=== PATIENT | female | born 1985 | race Caucasian/White ===

== ENCOUNTER 2017-11-14 11:38 | Observation (INO) | payer BC, OTHER ==
[~2017-11-14 11:38] MED LIST: ORTHOTRYCYCLINE; OXYACE5T PO; PANT40 PO
[2017-11-14 12:50] LABS: BASOPHILS ABSOLUTE AUTO 0.05 K/mm3 (0.00-0.23); BASOPHILS PERCENT AUTO 1 % (0-2); EOSINOPHILS ABSOLUTE AUTO 0.03 K/mm3 (0.00-0.68); EOSINOPHILS PERCENT AUTO 0 % (0-6); Hematocrit 37.4 % (33.0-51.0); Hemoglobin 12.8 g/dL (11.5-16.0); IMMATURE GRAN ABSOLUTE AUTO 0.05 K/mm3 (0.00-0.10); IMMATURE GRAN PERCENT AUTO 1 % (0-1); LYMPHOCYTES ABSOLUTE AUTO 2.31 K/mm3 (0.84-5.20); LYMPHOCYTES PERCENT AUTO 31 % (21-46); MONOCYTES ABSOLUTE AUTO 0.85 K/mm3 (0.16-1.47); MONOCYTES PERCENT AUTO 11 % (4-13); Mean Corpuscular HGB 30.8 pg (26.0-34.0); Mean Corpuscular HGB Conc 34.2 g/dL (31.5-36.5); Mean Corpuscular Volume 90 fL (80-100); Mean Platelet Volume 11.4 fL (9.1-12.4); NEUTROPHILS ABSOLUTE AUTO 4.16 K/mm3 (1.96-9.15); NEUTROPHILS PERCENT AUTO 56 % (41-73); Platelet Count 235 K/mm3 (150-400); RDW Coefficient Variation 12.8 % (11.7-14.2); RDW Standard Deviation 42.1 fL (35.1-46.3); Red Blood Cell Count 4.16 M/mm3 (3.80-5.20); White Blood Cell Count 7.45 K/mm3 (4.00-11.30)
[2017-11-14 12:55] LABS: Alanine Aminotransfer (ALT/SGP 33 U/L (12-78); Albumin, Blood 2.5 g/dL (3.4-5.0); Albumin/Globulin Ratio 0.7 (0.8-1.8); Alk Phos 175 U/L (50-136); Anion Gap 9 mmol/L (6-16); Aspartate Aminotrans (AST/SGOT 29 U/L (12-37); Bilirubin, Total 0.3 mg/dL (0.1-1.0); Blood Urea Nitrogen 18 mg/dL (8-24); CO2, Blood 21 mmol/L (21-32); Calcium, Blood 9.1 mg/dL (8.5-10.1); Chloride, Blood 107 mmol/L (98-108); Globulin, Blood 3.8 g/dL (2.2-4.0); Glomerular Filtration Rate >60 (60-); Glucose, Blood 80 mg/dL (70-99); Potassium, Blood 4.7 mmol/L (3.5-5.5); Sodium, Blood 137 mmol/L (136-145); Total Protein, Blood 6.3 g/dL (6.4-8.2)
[2017-11-14] MEDS ORDERED: LABE100 (14:19)
[2017-11-14] MEDS ORDERED: LEVSOD137 PO (16:24)
[2017-11-15 05:10] LABS: BASOPHILS ABSOLUTE AUTO 0.05 K/mm3 (0.00-0.23); BASOPHILS PERCENT AUTO 1 % (0-2); EOSINOPHILS ABSOLUTE AUTO 0.02 K/mm3 (0.00-0.68); EOSINOPHILS PERCENT AUTO 0 % (0-6); Hematocrit 35.7 % (33.0-51.0); Hemoglobin 12.2 g/dL (11.5-16.0); IMMATURE GRAN ABSOLUTE AUTO 0.05 K/mm3 (0.00-0.10); IMMATURE GRAN PERCENT AUTO 1 % (0-1); LYMPHOCYTES PERCENT AUTO 39 % (21-46); MONOCYTES ABSOLUTE AUTO 0.66 K/mm3 (0.16-1.47); MONOCYTES PERCENT AUTO 9 % (4-13); Mean Corpuscular HGB 30.7 pg (26.0-34.0); Mean Corpuscular HGB Conc 34.2 g/dL (31.5-36.5); Mean Corpuscular Volume 90 fL (80-100); Mean Platelet Volume 11.2 fL (9.1-12.4); NEUTROPHILS ABSOLUTE AUTO 3.82 K/mm3 (1.96-9.15); NEUTROPHILS PERCENT AUTO 51 % (41-73); Platelet Count 190 K/mm3 (150-400); RDW Coefficient Variation 12.9 % (11.7-14.2); RDW Standard Deviation 41.8 fL (35.1-46.3); Red Blood Cell Count 3.98 M/mm3 (3.80-5.20)
[2017-11-15 05:31] LABS: Alanine Aminotransfer (ALT/SGP 29 U/L (12-78); Albumin, Blood 2.3 g/dL (3.4-5.0); Albumin/Globulin Ratio 0.6 (0.8-1.8); Alk Phos 165 U/L (50-136); Anion Gap 10 mmol/L (6-16); Aspartate Aminotrans (AST/SGOT 24 U/L (12-37); Bilirubin, Total 0.4 mg/dL (0.1-1.0); Blood Urea Nitrogen 15 mg/dL (8-24); Bun/Creatinine Ratio 13.6 (12.0-20.0); CO2, Blood 21 mmol/L (21-32); Calcium, Blood 8.3 mg/dL (8.5-10.1); Chloride, Blood 109 mmol/L (98-108); Globulin, Blood 3.6 g/dL (2.2-4.0); Glomerular Filtration Rate >60 (60-); Glucose, Blood 71 mg/dL (70-99); Potassium, Blood 4.6 mmol/L (3.5-5.5); Sodium, Blood 140 mmol/L (136-145); Total Protein, Blood 5.9 g/dL (6.4-8.2)
== END 2017-11-15 11:00 | disposition home or self-care (01) ==
LOC: OBS 11:38 → BC 11:39 → OBS 15:32 → BC 15:37 → OBS 15:37 → BC 11-15 11:00
PROVIDERS: Obstetrics & Gynecology
DX: O14.93 Unspecified pre-eclampsia, third trimester (principal); O99.283 Endocrine, nutritional and metabolic diseases complicating pregnancy, third trimester; Z3A.34 34 weeks gestation of pregnancy; E05.00 Thyrotoxicosis with diffuse goiter without thyrotoxic crisis or storm
CPT/HCPCS: 36415; 59025; 76815; 76819; 80053; 81003; 81050; 84156; 85025; 96360; 96361; 99213; J0290; J7120

== ENCOUNTER → 2017-11-22 | Outpatient (CLI) | payer BC, OTHER ==
[~2017-11-22] MED LIST changes: +LABE100; +LEVSOD137 PO
[2017-11-22 15:39] LABS: BASOPHILS ABSOLUTE AUTO 0.07 K/mm3 (0.00-0.23); BASOPHILS PERCENT AUTO 1 % (0-2); EOSINOPHILS ABSOLUTE AUTO 0.03 K/mm3 (0.00-0.68); EOSINOPHILS PERCENT AUTO 0 % (0-6); Hematocrit 38.6 % (33.0-51.0); Hemoglobin 12.9 g/dL (11.5-16.0); IMMATURE GRAN ABSOLUTE AUTO 0.03 K/mm3 (0.00-0.10); IMMATURE GRAN PERCENT AUTO 0 % (0-1); LYMPHOCYTES ABSOLUTE AUTO 2.15 K/mm3 (0.84-5.20); LYMPHOCYTES PERCENT AUTO 30 % (21-46); MONOCYTES ABSOLUTE AUTO 0.65 K/mm3 (0.16-1.47); MONOCYTES PERCENT AUTO 9 % (4-13); Mean Corpuscular HGB 30.4 pg (26.0-34.0); Mean Corpuscular HGB Conc 33.4 g/dL (31.5-36.5); Mean Corpuscular Volume 91 fL (80-100); Mean Platelet Volume 11.7 fL (9.1-12.4); NEUTROPHILS ABSOLUTE AUTO 4.27 K/mm3 (1.96-9.15); NEUTROPHILS PERCENT AUTO 59 % (41-73); Platelet Count 197 K/mm3 (150-400); RDW Coefficient Variation 13.1 % (11.7-14.2); RDW Standard Deviation 42.8 fL (35.1-46.3); Red Blood Cell Count 4.25 M/mm3 (3.80-5.20)
[2017-11-22 15:53] LABS: Alanine Aminotransfer (ALT/SGP 19 U/L (12-78); Albumin, Blood 2.5 g/dL (3.4-5.0); Albumin/Globulin Ratio 0.7 (0.8-1.8); Alk Phos 223 U/L (50-136); Anion Gap 8 mmol/L (6-16); Aspartate Aminotrans (AST/SGOT 24 U/L (12-37); Bilirubin, Total 0.5 mg/dL (0.1-1.0); Blood Urea Nitrogen 18 mg/dL (8-24); Bun/Creatinine Ratio 18.5 (12.0-20.0); CO2, Blood 23 mmol/L (21-32); Calcium, Blood 8.2 mg/dL (8.5-10.1); Chloride, Blood 107 mmol/L (98-108); Creatinine, Blood 0.97 mg/dL (0.40-1.00); Globulin, Blood 3.7 g/dL (2.2-4.0); Glomerular Filtration Rate >60 (60-); Glucose, Blood 72 mg/dL (70-99); Sodium, Blood 138 mmol/L (136-145); Total Protein, Blood 6.2 g/dL (6.4-8.2)
[2017-11-22 15:56] LABS: Creatinine, Urine Random 44.3 mg/dL (27.00-270.00); Protein, Urine Random 93.7 mg/dL (0.0-11.9); Protein/Creat Ratio, Ur Random 2.1
== END ==
LOC: LAB SHORT 12:00 → LAB 12:00
PROVIDERS: Obstetrics & Gynecology
DX: Z34.03 Encounter for supervision of normal first pregnancy, third trimester (principal); Z3A.35 35 weeks gestation of pregnancy
CPT/HCPCS: 36415; 80053; 82570; 84156; 85025

== ENCOUNTER 2017-11-27 20:08 | Inpatient (IN) | payer BC, OTHER ==
[~2017-11-27] VITALS: Ht 170.2 cm; Wt 64.1 kg
[2017-11-27] MEDS ORDERED: PRENATAL VITAM1 EAC2 PO (20:50)
[2017-11-27 21:03] LABS: BASOPHILS ABSOLUTE AUTO 0.05 K/mm3 (0.00-0.23); BASOPHILS PERCENT AUTO 1 % (0-2); EOSINOPHILS ABSOLUTE AUTO 0.04 K/mm3 (0.00-0.68); EOSINOPHILS PERCENT AUTO 1 % (0-6); Hematocrit 36.1 % (33.0-51.0); Hemoglobin 12.7 g/dL (11.5-16.0); IMMATURE GRAN ABSOLUTE AUTO 0.03 K/mm3 (0.00-0.10); IMMATURE GRAN PERCENT AUTO 0 % (0-1); LYMPHOCYTES ABSOLUTE AUTO 2.67 K/mm3 (0.84-5.20); LYMPHOCYTES PERCENT AUTO 33 % (21-46); MONOCYTES ABSOLUTE AUTO 0.59 K/mm3 (0.16-1.47); MONOCYTES PERCENT AUTO 7 % (4-13); Mean Corpuscular HGB Conc 35.2 g/dL (31.5-36.5); Mean Corpuscular Volume 91 fL (80-100); Mean Platelet Volume 11.4 fL (9.1-12.4); NEUTROPHILS ABSOLUTE AUTO 4.79 K/mm3 (1.96-9.15); NEUTROPHILS PERCENT AUTO 59 % (41-73); Platelet Count 195 K/mm3 (150-400); RDW Coefficient Variation 13.1 % (11.7-14.2); RDW Standard Deviation 43.7 fL (35.1-46.3); Red Blood Cell Count 3.97 M/mm3 (3.80-5.20); White Blood Cell Count 8.17 K/mm3 (4.00-11.30)
[2017-11-27 21:20] LABS: Alanine Aminotransfer (ALT/SGP 26 U/L (12-78); Albumin, Blood 2.4 g/dL (3.4-5.0); Albumin/Globulin Ratio 0.6 (0.8-1.8); Alk Phos 227 U/L (50-136); Anion Gap 12 mmol/L (6-16); Aspartate Aminotrans (AST/SGOT 28 U/L (12-37); Bilirubin, Total 0.2 mg/dL (0.1-1.0); Blood Urea Nitrogen 17 mg/dL (8-24); Bun/Creatinine Ratio 15.5 (12.0-20.0); CO2, Blood 20 mmol/L (21-32); Calcium, Blood 8.2 mg/dL (8.5-10.1); Chloride, Blood 107 mmol/L (98-108); Glomerular Filtration Rate >60 (60-); Glucose, Blood 102 mg/dL (70-99); Potassium, Blood 4.2 mmol/L (3.5-5.5); Sodium, Blood 139 mmol/L (136-145); Total Protein, Blood 6.4 g/dL (6.4-8.2)
[2017-11-29 05:28] LABS: BASOPHILS ABSOLUTE AUTO 0.04 K/mm3 (0.00-0.23); BASOPHILS PERCENT AUTO 0 % (0-2); EOSINOPHILS ABSOLUTE AUTO 0.04 K/mm3 (0.00-0.68); EOSINOPHILS PERCENT AUTO 0 % (0-6); Hematocrit 28.6 % (33.0-51.0); Hemoglobin 9.9 g/dL (11.5-16.0); IMMATURE GRAN PERCENT AUTO 1 % (0-1); LYMPHOCYTES ABSOLUTE AUTO 2.67 K/mm3 (0.84-5.20); LYMPHOCYTES PERCENT AUTO 22 % (21-46); MONOCYTES ABSOLUTE AUTO 0.75 K/mm3 (0.16-1.47); MONOCYTES PERCENT AUTO 6 % (4-13); Mean Corpuscular HGB 31.3 pg (26.0-34.0); Mean Corpuscular HGB Conc 34.6 g/dL (31.5-36.5); Mean Corpuscular Volume 91 fL (80-100); NEUTROPHILS ABSOLUTE AUTO 8.68 K/mm3 (1.96-9.15); NEUTROPHILS PERCENT AUTO 71 % (41-73); Platelet Count 143 K/mm3 (150-400); RDW Coefficient Variation 13.2 % (11.7-14.2); RDW Standard Deviation 43.8 fL (35.1-46.3); Red Blood Cell Count 3.16 M/mm3 (3.80-5.20); White Blood Cell Count 12.28 K/mm3 (4.00-11.30)
[2017-11-29 11:42] LABS: BASOPHILS ABSOLUTE AUTO 0.05 K/mm3 (0.00-0.23); BASOPHILS PERCENT AUTO 1 % (0-2); EOSINOPHILS ABSOLUTE AUTO 0.03 K/mm3 (0.00-0.68); EOSINOPHILS PERCENT AUTO 0 % (0-6); Hematocrit 29.7 % (33.0-51.0); Hemoglobin 10.1 g/dL (11.5-16.0); IMMATURE GRAN ABSOLUTE AUTO 0.05 K/mm3 (0.00-0.10); IMMATURE GRAN PERCENT AUTO 1 % (0-1); LYMPHOCYTES ABSOLUTE AUTO 1.95 K/mm3 (0.84-5.20); LYMPHOCYTES PERCENT AUTO 18 % (21-46); MONOCYTES ABSOLUTE AUTO 0.55 K/mm3 (0.16-1.47); MONOCYTES PERCENT AUTO 5 % (4-13); Mean Corpuscular Volume 91 fL (80-100); NEUTROPHILS ABSOLUTE AUTO 8.06 K/mm3 (1.96-9.15); NEUTROPHILS PERCENT AUTO 75 % (41-73); Platelet Count 151 K/mm3 (150-400); RDW Coefficient Variation 13.2 % (11.7-14.2); RDW Standard Deviation 43.9 fL (35.1-46.3); Red Blood Cell Count 3.26 M/mm3 (3.80-5.20); White Blood Cell Count 10.69 K/mm3 (4.00-11.30)
[2017-11-29 11:58] LABS: Alanine Aminotransfer (ALT/SGP 12 U/L (12-78); Albumin/Globulin Ratio 0.6 (0.8-1.8); Alk Phos 167 U/L (50-136); Anion Gap 9 mmol/L (6-16); Aspartate Aminotrans (AST/SGOT 34 U/L (12-37); Bilirubin, Total 0.3 mg/dL (0.1-1.0); Blood Urea Nitrogen 15 mg/dL (8-24); Bun/Creatinine Ratio 15.1 (12.0-20.0); CO2, Blood 23 mmol/L (21-32); Calcium, Blood 7.5 mg/dL (8.5-10.1); Chloride, Blood 111 mmol/L (98-108); Creatinine, Blood 0.99 mg/dL (0.40-1.00); Globulin, Blood 3.4 g/dL (2.2-4.0); Glomerular Filtration Rate >60 (60-); Glucose, Blood 83 mg/dL (70-99); Potassium, Blood 4.3 mmol/L (3.5-5.5); Sodium, Blood 143 mmol/L (136-145); Total Protein, Blood 5.4 g/dL (6.4-8.2)
[2017-11-30] MEDS ORDERED: IBUP800 PO (07:27)
[2017-11-30 10:57] LABS: BASOPHILS ABSOLUTE AUTO 0.04 K/mm3 (0.00-0.23); BASOPHILS PERCENT AUTO 0 % (0-2); EOSINOPHILS ABSOLUTE AUTO 0.05 K/mm3 (0.00-0.68); EOSINOPHILS PERCENT AUTO 1 % (0-6); Hematocrit 33.4 % (33.0-51.0); Hemoglobin 11.5 g/dL (11.5-16.0); IMMATURE GRAN ABSOLUTE AUTO 0.06 K/mm3 (0.00-0.10); IMMATURE GRAN PERCENT AUTO 1 % (0-1); LYMPHOCYTES PERCENT AUTO 17 % (21-46); MONOCYTES ABSOLUTE AUTO 0.56 K/mm3 (0.16-1.47); MONOCYTES PERCENT AUTO 6 % (4-13); Mean Corpuscular HGB 31.9 pg (26.0-34.0); Mean Corpuscular HGB Conc 34.4 g/dL (31.5-36.5); Mean Corpuscular Volume 93 fL (80-100); Mean Platelet Volume 10.4 fL (9.1-12.4); NEUTROPHILS ABSOLUTE AUTO 7.44 K/mm3 (1.96-9.15); NEUTROPHILS PERCENT AUTO 76 % (41-73); Platelet Count 202 K/mm3 (150-400); RDW Coefficient Variation 13.4 % (11.7-14.2); RDW Standard Deviation 45.6 fL (35.1-46.3); Red Blood Cell Count 3.61 M/mm3 (3.80-5.20); White Blood Cell Count 9.85 K/mm3 (4.00-11.30)
[2017-11-30 11:31] LABS: Alanine Aminotransfer (ALT/SGP 22 U/L (12-78); Albumin, Blood 2.4 g/dL (3.4-5.0); Albumin/Globulin Ratio 0.6 (0.8-1.8); Alk Phos 177 U/L (50-136); Anion Gap 9 mmol/L (6-16); Aspartate Aminotrans (AST/SGOT 39 U/L (12-37); Bilirubin, Total 0.3 mg/dL (0.1-1.0); Blood Urea Nitrogen 12 mg/dL (8-24); Bun/Creatinine Ratio 11.8 (12.0-20.0); CO2, Blood 22 mmol/L (21-32); Calcium, Blood 7.9 mg/dL (8.5-10.1); Chloride, Blood 109 mmol/L (98-108); Creatinine, Blood 1.02 mg/dL (0.40-1.00); Globulin, Blood 4.1 g/dL (2.2-4.0); Glomerular Filtration Rate >60 (60-); Glucose, Blood 87 mg/dL (70-99); Potassium, Blood 4.3 mmol/L (3.5-5.5); Sodium, Blood 140 mmol/L (136-145); Total Protein, Blood 6.5 g/dL (6.4-8.2)
[2017-12-01 05:38] LABS: BASOPHILS ABSOLUTE AUTO 0.05 K/mm3 (0.00-0.23); BASOPHILS PERCENT AUTO 1 % (0-2); EOSINOPHILS ABSOLUTE AUTO 0.11 K/mm3 (0.00-0.68); EOSINOPHILS PERCENT AUTO 1 % (0-6); Hematocrit 33.6 % (33.0-51.0); Hemoglobin 11.2 g/dL (11.5-16.0); IMMATURE GRAN ABSOLUTE AUTO 0.05 K/mm3 (0.00-0.10); IMMATURE GRAN PERCENT AUTO 1 % (0-1); LYMPHOCYTES PERCENT AUTO 28 % (21-46); MONOCYTES PERCENT AUTO 6 % (4-13); Mean Corpuscular HGB 30.6 pg (26.0-34.0); Mean Corpuscular HGB Conc 33.3 g/dL (31.5-36.5); Mean Corpuscular Volume 92 fL (80-100); Mean Platelet Volume 10.2 fL (9.1-12.4); NEUTROPHILS ABSOLUTE AUTO 6.79 K/mm3 (1.96-9.15); NEUTROPHILS PERCENT AUTO 64 % (41-73); Platelet Count 207 K/mm3 (150-400); RDW Coefficient Variation 13.5 % (11.7-14.2); RDW Standard Deviation 44.6 fL (35.1-46.3); Red Blood Cell Count 3.66 M/mm3 (3.80-5.20)
[2017-12-01 06:06] LABS: Alanine Aminotransfer (ALT/SGP 20 U/L (12-78); Albumin, Blood 2.4 g/dL (3.4-5.0); Albumin/Globulin Ratio 0.6 (0.8-1.8); Alk Phos 160 U/L (50-136); Anion Gap 8 mmol/L (6-16); Aspartate Aminotrans (AST/SGOT 33 U/L (12-37); Bilirubin, Total 0.2 mg/dL (0.1-1.0); Blood Urea Nitrogen 11 mg/dL (8-24); Bun/Creatinine Ratio 13.1 (12.0-20.0); CO2, Blood 22 mmol/L (21-32); Calcium, Blood 7.8 mg/dL (8.5-10.1); Chloride, Blood 110 mmol/L (98-108); Creatinine, Blood 0.84 mg/dL (0.40-1.00); Globulin, Blood 4.1 g/dL (2.2-4.0); Glomerular Filtration Rate >60 (60-); Glucose, Blood 73 mg/dL (70-99); Potassium, Blood 3.9 mmol/L (3.5-5.5); Sodium, Blood 140 mmol/L (136-145); Total Protein, Blood 6.5 g/dL (6.4-8.2)
== END 2017-12-01 14:50 | disposition home or self-care (01) | DRG 774 ==
LOC: BC 20:08
PROVIDERS: Obstetrics & Gynecology
PROC: 10E0XZZ Delivery of Products of Conception, External Approach (ICD-10-PCS; principal; 2017-11-28)
PROC: 0KQM0ZZ Repair Perineum Muscle, Open Approach (ICD-10-PCS; 2017-11-28)
PROC: 3E0P7VZ Introduction of Hormone into Female Reproductive, Via Natural or Artificial Opening (ICD-10-PCS; 2017-11-28)
PROC: 10907ZC Drainage of Amniotic Fluid, Therapeutic from Products of Conception, Via Natural or Artificial Opening (ICD-10-PCS; 2017-11-28)
PROC: 3E033VJ Introduction of Other Hormone into Peripheral Vein, Percutaneous Approach (ICD-10-PCS; 2017-11-28)
PROC: 00HU33Z Insertion of Infusion Device into Spinal Canal, Percutaneous Approach (ICD-10-PCS; 2017-11-28)
PROC: 3E0R3BZ Introduction of Anesthetic Agent into Spinal Canal, Percutaneous Approach (ICD-10-PCS; 2017-11-28)
DX: O14.14 Severe pre-eclampsia complicating childbirth (principal); O14.25 HELLP syndrome, complicating the puerperium; Z37.0 Single live birth; O69.1XX0 Labor and delivery complicated by cord around neck, with compression, not applicable or unspecified; O70.1 Second degree perineal laceration during delivery; O99.284 Endocrine, nutritional and metabolic diseases complicating childbirth; E89.0 Postprocedural hypothyroidism; Z3A.36 36 weeks gestation of pregnancy; Z88.2 Allergy status to sulfonamides; Z85.850 Personal history of malignant neoplasm of thyroid; Z79.899 Other long term (current) drug therapy
CPT/HCPCS: 36415; 51702; 80053; 85025; J1885; J2590; J3010; J7120

== ENCOUNTER → 2021-03-16 | Outpatient (CLI) | payer OTHER ==
[~2021-03-16] MED LIST changes: +Aspirin EC81 MG PO; +IBUP800 PO; +PRENATAL VITAM1 EAC2 PO
[2021-03-17 17:10] LABS: HPV 16 Negative (Negative); HPV 18 Negative (Negative); HPV OTHER HR TYPES Negative (Negative)
== END | disposition home or self-care (01) ==
LOC: LAB SHORT 08:44 → LAB 08:44
PROVIDERS: Obstetrics & Gynecology
DX: Z12.4 Encounter for screening for malignant neoplasm of cervix (principal)
CPT/HCPCS: 87624; G0123